=== PATIENT | female | born 1985 | race Caucasian/White ===

== ENCOUNTER 2019-09-30 14:20 | Emergency (ER) | payer OTHER ==
[~2019-09-30] VITALS: Ht 157.5 cm; Wt 64.9 kg
[~2019-09-30 14:20] MED LIST: CHOL10003 PO; DOCO200C3 PO; HYDR200T72 PO; HYDROCHLOROTH12.5 MG PO; LEVO200T5 PO; MAGN250T8 PO; METF1000 PO; NIFE-7 PO; OMEG1CAP23 PO; VITA400T6 PO
--- NOTE | 2019-09-30 16:02 | NUR ---
SECOND BALLER: PT TO ROOM FROM LOBBY.
--- NOTE | 2019-09-30 16:11 | NUR ---
PT C/O BURSITIS IN RIGHT KNEE. PAIN, SWELLING, REDNESS STARTED LAST NIGHT AND INCREASED OVER NIGHT. PT MARKED REDNESS ON KNEE WITH MARKER, SWELLING HAS NOT INCREASED SINCE LAST [facility] AT 1330. PT SEEN AT [facility] THIS AM, XRAY DONE, PT GIVEN ABX AND PAIN MEDS. LAST PAIN MED AT ABOUT 1200 TODAY. BROTHER AT BEDSIDE.
[2019-09-30] MEDS ORDERED: KETOROLAC 30 MG/1 ML IVPush STA (17:32)
[2019-09-30] MEDS ORDERED: KETOROLAC 30 MG/1 ML ONE (17:36)
[2019-09-30] MEDS ORDERED: CEFTRIAXONE PMX 1GM/50ML 50 ML ONE (17:36)
[2019-09-30] MEDS ORDERED: MORPHINE SULFATE 4 MG/ML, 1ML ONE (17:36)
[2019-09-30] MEDS ORDERED: MORPHINE SULFATE 4 MG/ML, 1ML IV PRN (18:00)
[2019-09-30] MEDS ORDERED: SODIUM CHLORIDE FLUSH 10ML SYR IVF ONE (18:00)
[2019-09-30] MEDS ORDERED: CEFTRIAXONE PMX 1GM/50ML 50 ML IVPB ONE (18:00)
--- NOTE | 2019-09-30 18:05 | NUR ---
PIV PLACED, LABS DRAWN AND COLLECTED BY DELIVERY SPECIALIST. MEDS ADMIN PER APR.
[2019-09-30 18:08] LABS: MEAN CORPUSCULAR HEMOGLOBIN 30.7 pg (27.0-34.8); MEAN CORPUSCULAR HGB CONC 33.6 g/dL (32.4-35.8); MEAN CORPUSCULAR VOLUME 91.5 fL (80-100); MEAN PLATELET VOLUME 9.1 fL (7.4-10.4); PLATELET COUNT 284 x10^3/uL (130-400); RED BLOOD COUNT 5.36 x10^6/uL (3.82-5.3); RED CELL DISTRIBUTION WIDTH 13.6 % (9.6-15.2)
[2019-09-30 18:17] LABS: ALBUMIN 4.4 g/dL (3.4-5.0); ANION GAP 7 mmol/L (5-15); CALCIUM 9.2 mg/dL (8.5-10.1); CHLORIDE 100 mmol/L (98-107); CREATININE 0.75 mg/dL (0.55-1.02)
[2019-09-30 18:20] LABS: BASOPHILS # (AUTO) 0.07 x10^3/uL (0-0.1); BASOPHILS % (AUTO) 0 % (0-1); EOSINOPHILS # (AUTO) 0.15 x10^3/uL (0-0.4); EOSINOPHILS % (AUTO) 1 % (1-7); LYMPHOCYTES # (AUTO) 1.99 x10^3/uL (1-3.4); LYMPHOCYTES % (AUTO) 12 % (22-44); MD SCAN; MONOCYTES # (AUTO) 0.87 x10^3/uL (0.2-0.8); MONOCYTES % (AUTO) 5 % (2-9); NEUTROPHILS # (AUTO) 14.25 x10^3/uL (1.8-6.8); NEUTROPHILS % (AUTO) 82 % (42-75)
--- NOTE | 2019-09-30 18:33 | NUR ---
PT STATES PAIN IS BETTER AFTER PAIN MEDS. ALL RESULTS ARE BACK AT THIS TIME. CHART UP FOR RECHECK.
[2019-09-30] MEDS ORDERED: ONDANSETRON 2MG/ML, 2ML ONE (19:22)
--- NOTE | 2019-09-30 19:26 | NUR ---
RADIO TALK SHOW HOST PER MAR.
[2019-09-30 19:27] VITALS: BP 121/86
[2019-09-30] MEDS ORDERED: ONDANSETRON 2MG/ML, 2ML IVPush ONE (19:30)
== END 2019-09-30 20:10 | disposition home or self-care (01) ==
LOC: ED 19:50
DX: L03.115 Cellulitis of right lower limb (principal); M34.1 CR(E)ST syndrome; M25.861 Other specified joint disorders, right knee; I10 Essential (primary) hypertension
CPT/HCPCS: 36415; 80048; 82040; 85025; 96365; 96375; 99284; J0696; J1885; J2270; J2405

== ENCOUNTER → 2019-12-08 | Outpatient (CLI) | payer OTHER | END | disposition home or self-care (01) | LOC: CVU 08:45 | PROVIDERS: ATTEND Internal Medicine | DX: I37.1 Nonrheumatic pulmonary valve insufficiency (principal); M34.9 Systemic sclerosis, unspecified; Z79.899 Other long term (current) drug therapy; Z85.850 Personal history of malignant neoplasm of thyroid | CPT/HCPCS: 93306; 94060; 94726; 94729 ==